=== PATIENT | male | born 1985 | race Hispanic/Latino ===

== ENCOUNTER 2020-02-13 11:49 | Emergency (ER) | payer OTHER, SELFPAY ==
[2020-02-13] MEDS ORDERED: diphenhydrAMINE 50 MG/ML VIAL ONE (12:09)
[2020-02-13] MEDS ORDERED: Metoclopramide HCl 10 MG/2 ML VIAL ONE (12:09)
[2020-02-13 12:36] LABS: #Basophils 0.1 thou/uL (0.0-0.2); #Eosinphils 0.1 thou/uL (0.0-0.7); #Lymphocytes 3.6 thou/uL (1.20-3.40); #Monocytes 0.5 thou/uL (0.11-0.59); #Neutrophils 3.6 thou/uL (1.40-6.50); %Basophils 0.9 % (0.0-1.0); %Eosinophils 0.9 % (0.0-10.0); %Lymphocytes 45.6 % (21.0-51.0); %Monocytes 6.4 % (0.0-10.0); %Neutrophils 46.2 % (42.0-75.0); Hemoglobin 15.8 g/dL (14.0-18.0); Mean Corpuscular HGB CONC 33.7 g/dL (32.0-36.0); Mean Corpuscular Hemoglobin 30.8 pg (27.0-31.0); Mean Corpuscular Volume 91.6 fL (78.0-98.0); Mean Platelet Volume 7.1 fL (7.4-10.4); Platelet Count 317 thou/uL (130-400); RBC Distribution Width 11.7 % (11.5-14.5); Red Blood Cell (RBC) Count 5.12 mill/uL (4.70-6.10); White Blood Cell (WBC) Count 7.9 thou/uL (4.8-10.8)
[2020-02-13 12:58] LABS: ALT (SGPT) 25 U/L (8-55); AST (SGOT) 17 U/L (5-34); Albumin 4.5 g/dL (3.5-5.0); Alkaline Phosphatase 84 U/L (40-110); Anion Gap 18 mmol/L (10-20); BUN (Urea Nitrogen) 9 mg/dL (8.9-20.6); Bilirubin, Total 0.3 mg/dL (0.2-1.2); CK (CPK) 206 U/L (30-200); Calc. Creatinine Clearance 0 mL/min (70-130); Carbon Dioxide 21 mmol/L (22-29); Chloride 104 mmol/L (98-107); Globulin 3.3 g/dL (2.4-3.5); Glucose 170 mg/dL (70-105); Magnesium 1.7 mg/dL (1.6-2.6); Potassium 3.7 mmol/L (3.5-5.1); Protein, Total 7.8 g/dL (6.0-8.3); Sodium 139 mmol/L (136-145)
== END 2020-02-13 14:15 | disposition home or self-care (01) ==
LOC: ERS 11:49
DX: I10 Essential (primary) hypertension (principal); F43.9 Reaction to severe stress, unspecified; E11.9 Type 2 diabetes mellitus without complications
CPT/HCPCS: 80053; 82550; 83735; 84443; 84484; 85025; 93005; 96365; 96366; 96375; J1200; J2765